=== PATIENT | female | born 1955 | race Asian ===

== ENCOUNTER → 2024-05-13 | Emergency (ER) | payer MEDICARE, OTHER ==
[~2024-05-13] VITALS: Ht 154.9 cm; Wt 63.6 kg
[~2024-05-13] MED LIST: AMLO2.5T96 PO; BACTDSB PO; CEPH-558 PO; NOCURR; SIMV-260 PO; VICOT
[2024-05-13 14:42] VITALS: TEMP 97.9
[2024-05-13] MEDS: CefTRIAXone SODIUM 1 GM/VIAL IM ONE (17:10)
[2024-05-13] MEDS: LIDOCAINE/PF 1% 2 ML VIAL IM ONE (17:10)
[2024-05-13] MEDS: SULFAMETHOX/TRIMETH DS 800-160 MG/TABLET PO ONE (17:10)
[2024-05-13 17:47] VITALS: BP 119/66; PULSE 90; RESP 16
== END | disposition home or self-care (01) ==
LOC: EMS 14:38
DX: L03.211 Cellulitis of face (principal); E11.9 Type 2 diabetes mellitus without complications; F17.210 Nicotine dependence, cigarettes, uncomplicated
CPT/HCPCS: 99283; 96372; J0696; J3490

== ENCOUNTER 2025-09-13 07:05 | Inpatient (IN) | payer MEDICARE, OTHER ==
[~2025-09-13] VITALS: Ht 154.9 cm; Wt 63.6 kg
[~2025-09-13 07:05] MED LIST changes: -NOCURR; -VICOT
[2025-09-13] MEDS ORDERED: GABA-1216 PO (07:16)
[2025-09-13] MEDS ORDERED: FLUT1BLS3 IH (07:16)
[2025-09-13] MEDS ORDERED: RAMI2.5C57 PO (07:16)
[2025-09-13] MEDS ORDERED: TRIA15CR49 TP (07:16)
[2025-09-13] MEDS ORDERED: LEVO5TAB29 PO (07:16)
[2025-09-13] MEDS ORDERED: CHOL200059 PO (07:16)
[2025-09-13] MEDS ORDERED: FLUT16SP NASAL (07:16)
[2025-09-13] MEDS ORDERED: ROSU10TA98 PO (07:16)
[2025-09-13 08:05] LABS: PLATELET COUNT (AUTO) 297 K/uL (150-450); RED BLOOD CELL COUNT(AUTO) 4.71 MIL/uL (4.00-5.20); RED CELL DISTRIBUTION WIDTH 12.8 % (11.5-14.5); WHITE BLOOD COUNT (AUTO) 7.4 K/uL (4.5-11.0)
[2025-09-13 08:12] LABS: CALCIUM, TOTAL 8.8 mg/dL (8.8-10.5); CREATININE 0.64 mg/dL (0.60-1.30); GLOMERULAR FILTR. RATE CALC > 60 mL/min (>60); GLUCOSE,RANDOM 104 mg/dL (70-110); SODIUM SERUM 138 mmol/L (136-145); UREA NITROGEN, BLOOD 10 mg/dL (7-18)
[2025-09-13] MEDS: PIPERACILLIN/TAZO 3.375 GM/D5W 50 ML IV ONE (09:49)
[2025-09-13] MEDS: VANCOMYCIN 1.25 GM/WATER(PEG) 250 ML IV ONE (10:32)
[2025-09-13 13:03] VITALS: BP 111/57; PULSE 78; RESP 18; TEMP 97.5; O2SAT 98
[2025-09-13] MEDS ORDERED: MORPHINE SULFATE 4 MG/ML SYRINGE IVP PRN (13:30)
[2025-09-13] MEDS ORDERED: ACETAMINOPHEN 325 MG TABLET PO PRN (13:30)
[2025-09-13] MEDS ORDERED: ONDANSETRON HCL 4 MG/2 ML VIAL IVP PRN (13:30)
[2025-09-13] MEDS ORDERED: BISACODYL 10 MG RECTAL RECTAL SUPPOSITORY PR PRN (13:30)
[2025-09-13] MEDS ORDERED: MAGNESIUM HYDROXIDE SUSPENSION 30 ML UDCUP PO PRN (13:30)
[2025-09-13] MEDS ORDERED: ZOLPIDEM TARTRATE 5 MG TABLET PO PRN (13:30)
[2025-09-13] MEDS: HEPARIN SODIUM,PORCINE 5,000 UNITS/ML VIAL SQ SCH (15:22)
[2025-09-13 17:20] VITALS: BP 136/64; PULSE 70; RESP 18; TEMP 98.3; O2SAT 97
[2025-09-13] MEDS ORDERED: SODIUM CHLORIDE 0.9% 500 ML IV ONE (20:00)
[2025-09-13] MEDS: VANCOMYCIN 1GM/WATER(PEG/NADA) 200 ML IV SCH (20:10)
[2025-09-13] MEDS: ROSUVASTATIN CALCIUM 10 MG TABLET PO SCH (20:11)
[2025-09-13] MEDS: DOCUSATE SODIUM 100 MG CAPSULE PO SCH (20:11)
[2025-09-13] MEDS: GABAPENTIN 100 MG CAPSULE PO SCH (20:11)
[2025-09-13 20:17] VITALS: BP 131/64; PULSE 70; PULSE 74; RESP 18; TEMP 97.7; O2SAT 97
[2025-09-14 04:25] VITALS: BP 96/72; PULSE 73; RESP 18; TEMP 98.1; O2SAT 96
[2025-09-14] MEDS: PANTOPRAZOLE SODIUM 40 MG DR TABLET PO SCH (07:32)
[2025-09-14] MEDS: CHOLECALCIFEROL (VIT D3) 2,000 UNITS [50 MCG] TABLET PO SCH (07:32)
[2025-09-14 08:19] LABS: PLATELET COUNT (AUTO) 309 K/uL (150-450); RED BLOOD CELL COUNT(AUTO) 4.81 MIL/uL (4.00-5.20); RED CELL DISTRIBUTION WIDTH 12.7 % (11.5-14.5); WHITE BLOOD COUNT (AUTO) 6.4 K/uL (4.5-11.0)
[2025-09-14 08:29] LABS: CALCIUM, TOTAL 9.3 mg/dL (8.8-10.5); CREATININE 0.55 mg/dL (0.60-1.30); GLOMERULAR FILTR. RATE CALC > 60 mL/min (>60); GLUCOSE,RANDOM 129 mg/dL (70-110); SODIUM SERUM 139 mmol/L (136-145); UREA NITROGEN, BLOOD 11 mg/dL (7-18)
[2025-09-14] MEDS ORDERED: MISC MED-CONVERTED FROM AMBULATORY (Fluticasone/Umeclidin/Vilanter (Trelegy Ellipta 100-62 IH SCH (09:00)
[2025-09-14] MEDS: FLUTICASONE PROPIONATE 50 MCG/SPRAY 16 GM NASAL SPRAY NASAL SCH (09:37)
[2025-09-14] MEDS: HYDROCODONE/ACETAMINOPHEN 5-325 MG TABLET PO PRN (14:42)
[2025-09-14] MEDS ORDERED: LABETALOL HCL 5 MG/ML 20 ML VIAL IVP PRN (19:15)
[2025-09-14 20:54] VITALS: BP 131/82; PULSE 61; RESP 18; TEMP 97.9; O2SAT 96
[2025-09-15 05:56] VITALS: BP 104/58; PULSE 75; RESP 18; TEMP 97.9; O2SAT 96
[2025-09-15 07:10] LABS: PLATELET COUNT (AUTO) 325 K/uL (150-450); RED BLOOD CELL COUNT(AUTO) 5.10 MIL/uL (4.00-5.20); RED CELL DISTRIBUTION WIDTH 12.7 % (11.5-14.5); WHITE BLOOD COUNT (AUTO) 8.5 K/uL (4.5-11.0)
[2025-09-15 07:25] LABS: CALCIUM, TOTAL 9.2 mg/dL (8.8-10.5); CREATININE 0.57 mg/dL (0.60-1.30); GLOMERULAR FILTR. RATE CALC > 60 mL/min (>60); GLUCOSE,RANDOM 118 mg/dL (70-110); SODIUM SERUM 140 mmol/L (136-145); UREA NITROGEN, BLOOD 8 mg/dL (7-18)
[2025-09-15 08:43] VITALS: BP 110/86; PULSE 68; RESP 18; TEMP 98.1; O2SAT 98
[2025-09-15] MEDS ORDERED: AMOX-457 PO (13:15)
[2025-09-15] MEDS ORDERED: BACI28.410 TP (13:15)
[2025-09-15] MEDS ORDERED: VANCOMYCIN 1.25 GM/WATER(PEG) 250 ML IV SCH ×2 (20:00)
== END 2025-09-15 15:00 | disposition home or self-care (01) | DRG 603 ==
LOC: EMS 07:05 → EDH 11:07 → 6S 13:20 → 4E 09-14 17:25
PROVIDERS: ADMIT Internal Medicine; ATTEND Internal Medicine
DX: L03.116 Cellulitis of left lower limb (principal); E11.9 Type 2 diabetes mellitus without complications; I10 Essential (primary) hypertension; J45.909 Unspecified asthma, uncomplicated; E78.5 Hyperlipidemia, unspecified; E55.9 Vitamin D deficiency, unspecified; M79.89 Other specified soft tissue disorders; E78.00 Pure hypercholesterolemia, unspecified; Z87.891 Personal history of nicotine dependence; Z79.899 Other long term (current) drug therapy
CPT/HCPCS: 71045; 80048; 80202; 85025; 93005; 96365; 96368; 99285; G0378; J1644; J2543; J7040; 36415-L1; 36415-TC

== ENCOUNTER 2025-10-15 09:58 | Emergency (ER) | payer MEDICARE, OTHER ==
[~2025-10-15] VITALS: Ht 154.9 cm; Wt 63.6 kg
[~2025-10-15 09:58] MED LIST changes: -AMLO2.5T96 PO; +AMOX-457 PO; +BACI28.410 TP; -BACTDSB PO; -CEPH-558 PO; +CHOL200059 PO; +FLUT16SP NASAL; +FLUT1BLS3 IH; +GABA-1216 PO; +LEVO5TAB29 PO; +RAMI2.5C57 PO; +ROSU10TA98 PO; -SIMV-260 PO
[2025-10-15 10:07] VITALS: TEMP 98
[2025-10-15] MEDS: KETOROLAC TROMETHAMINE 30 MG/ML VIAL IM ONE (10:43)
[2025-10-15] MEDS: ACETAMINOPHEN 500 MG TABLET PO ONE (10:44)
[2025-10-15 10:47] VITALS: BP 93/66; PULSE 81; RESP 18; O2SAT 99
== END 2025-10-15 11:49 | disposition home or self-care (01) ==
LOC: EMS 09:58
DX: M25.562 Pain in left knee (principal); E78.00 Pure hypercholesterolemia, unspecified; I10 Essential (primary) hypertension; Z79.899 Other long term (current) drug therapy
CPT/HCPCS: 99283; 73562; 96372; J1885